=== PATIENT | female | born 1985 | race African-American/Black ===

== ENCOUNTER 2016-05-23 21:08 | Emergency (ER) | payer MEDICAID, OTHER ==
[~2016-05-23] VITALS: Ht 160 cm; Wt 71.7 kg
[~2016-05-23 21:08] MED LIST: ACETAMINOPHEN-1 EAC1 ORAL; CYCLOBENZAPRINE10 MG ORAL; IBUPROFEN600 MG ORAL; NAPROSYN500 M1 ORAL; NKM; NORCO 5-325 TA1 EACH ORAL
[2016-05-23] MEDS ORDERED: IBUPROFEN600 MG ORAL (22:15)
[2016-05-23 22:21] VITALS: BP 121/73
[2016-05-23 22:22] VITALS: BP 121/73
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
--- NOTE | 2016-05-24 10:42 | Diagnostic Imaging Report ---
Indication: Pain Comparison: None Findings: 3 views of the right foot were obtained. No acute fractures, malalignment, erosions or periostitis are identified. Bone mineralization is within normal limits. Soft tissues are unremarkable. Impression: Negative examination of the right foot.
== END 2016-05-23 22:22 | disposition home or self-care (01) ==
LOC: EMR 21:45
DX: S90.121A Contusion of right lesser toe(s) without damage to nail, initial encounter (principal); W50.0XXA Accidental hit or strike by another person, initial encounter; Y93.9 Activity, unspecified; Y92.9 Unspecified place or not applicable
CPT/HCPCS: 73630; 99283; L3215

== ENCOUNTER 2016-12-17 15:46 | Emergency (ER) | payer MEDICAID, OTHER ==
[~2016-12-17] VITALS: Ht 160 cm; Wt 72.6 kg
[2016-12-17 15:51] VITALS: BP 94/63
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
[2016-12-17 16:17] LABS: APPEARANCE,URINE SLIGHTLY CLOUDY; KETONES,URINE NEGATIVE (NEGATIVE); LEUKOCYTE ESTERASE ,URINE 3+ (NEGATIVE); NITRITE,URINE NEGATIVE (NEGATIVE); PH,URINE 8 (4.5-8.0); PROTEIN,URINE 1+ (NEGATIVE); UROBILINOGEN,URINE 4 MG/DL (0.0-1.0)
[2016-12-17 16:28] LABS: BACTERIA,URINE FEW /HPF; SQUAMOUS EPITHELIAL CELL,UR MODERATE /LPF (NONE/OCC); WBC,URINE 0-2 /HPF (0 - 2)
[2016-12-17] MEDS ORDERED: Fluconazole 100mg tab ORAL ONE (16:45)
[2016-12-17 16:46] VITALS: BP 102/64
== END 2016-12-17 16:49 | disposition home or self-care (01) ==
LOC: EMR 16:49
DX: N89.8 Other specified noninflammatory disorders of vagina (principal); R10.30 Lower abdominal pain, unspecified
CPT/HCPCS: 81003; 81025; 99283

== ENCOUNTER 2017-07-12 11:15 | Emergency (ER) | payer MEDICAID ==
[~2017-07-12] VITALS: Ht 162.6 cm; Wt 72.6 kg
[2017-07-12] MEDS ORDERED: NKM (11:21)
[2017-07-12 11:52] VITALS: BP 116/78
[2017-07-12 12:19] LABS: ANION GAP 6 mmol/L (5-15); BLOOD UREA NITROGEN 7 mg/dL (7-18); CALCIUM 9.2 MG/DL (8.5-10.1); CARBON DIOXIDE 30 MMOL/L (21-32); CHLORIDE 105 MMOL/L (98-107); CREATININE 0.6 MG/DL (0.55-1.30); POTASSIUM 3.8 MMOL/L (3.5-5.1); SODIUM 141 MMOL/L (136-145)
[2017-07-12 12:22] LABS: BASOPHILS % (AUTO) 1.7 % (0.0-2.0); EOSINOPHILS % (AUTO) 4.7 % (0.0-3.0); HEMATOCRIT 41.5 % (37.0-47.0); HEMOGLOBIN 13.9 G/DL (12.0-16.0); MEAN CORPUSCULAR VOLUME 93 FL (80-99); MONOCYTES % (AUTO) 9.7 % (1.0-10.0); NEUTROPHILS % (AUTO) 53.9 % (45.0-75.0); PLATELET COUNT 295 K/UL (150-450); RED BLOOD COUNT 4.46 M/UL (4.20-5.40); RED CELL DISTRIBUTION WIDTH 11.8 % (11.6-14.8); WHITE BLOOD COUNT 5.3 K/UL (4.8-10.8)
[2017-07-12 12:31] LABS: ALANINE AMINOTRANSFERASE 24 U/L (12-78); ALBUMIN/GLOBULIN RATIO 0.9 (1.0-2.7); ALKALINE PHOSPHATASE 102 U/L (46-116); ASPARTATE AMINO TRANSFERASE 25 U/L (15-37); BILIRUBIN,TOTAL 0.3 MG/DL (0.2-1.0); CREATINE KINASE 164 U/L (26-308)
[2017-07-12 12:36] LABS: INR 1.1 (0.9-1.1)
[2017-07-12 13:26] VITALS: BP_SYST 105; BP_SYST 112; BP_DIAS 68; BP_DIAS 75
[2017-07-12 13:28] VITALS: BP_SYST 105; BP_SYST 112; BP_DIAS 68; BP_DIAS 75
--- NOTE | 2017-07-12 14:09 | Diagnostic Imaging Report ---
Indication: Cough Technique: One view of the chest Comparison: none Findings: Lungs and pleural spaces are clear. Heart size is normal Impression: No acute process
[2017-07-12 14:55] VITALS: BP 111/67
--- NOTE | 2017-07-12 14:59 | Emergency Room Report ---
History of Present Illness General Chief Complaint: Dizziness Source: Patient Present Illness HPI Patient has felt weak and dizzy since this morning. She has been nauseated and vomited once. She has loose stools, reported to RN as diarrhea. No melena or blood in stool. She almost passed out. She had tingling in her R hand after the episode of vomiting. Heart rate was pounding at that time but improved. Denies chest pain. She denies fever, chills. She doesn't believe she is . No URI symptoms. No travel or unusual contacts. She denies pain. No headache. No rashes. Denies major medical problems. Allergies: Coded Allergies: No Known Allergies (Unverified , 12/08/13) Patient History Past Medical History: see triage record Social History: Denies: smoking Social History Narrative cares for her kids - here with friend Last Menstrual Period: 06/24/17 Now: No Reviewed Nursing Documentation: PMH: Agreed; PSxH: Agreed Nursing Documentation-PMH Past Medical History: No Stated History Review of Systems All Other Systems: negative except mentioned in HPI Physical Exam Vital Signs Date Time Temp Pulse Resp B/P (MAP) Pulse Ox O2 Delivery O2 Flow Rate FiO2 07/12/17 11:13 98.3 88 16 116/78 98 Room Air 98.2 Sp02 EP Interpretation: reviewed, normal General Appearance: well appearing, no apparent distress, GCS 15 Head: normocephalic Eyes: bilateral eye normal inspection, bilateral eye PERRL, bilateral eye conjunctivae pale ENT: moist mucus membranes Neck: supple Respiratory: lungs clear, normal breath sounds Cardiovascular #1: regular rate, rhythm Cardiovascular #2: 2+ radial (R) Gastrointestinal: normal inspection, normal bowel sounds, non tender, no mass, non-distended Musculoskeletal: back normal, gait/station normal, normal range of motion Neurologic: alert, oriented x3, motor strength/tone normal, sensory intact, cerebellar normal, speech normal Psychiatric: mood/affect normal Skin: normal inspection, warm/dry Medical Decision Making Diagnostic Impression: Primary Impression: Weakness Additional Impressions: Dehydration Near syncope Vomiting and diarrhea ER Course Patient presents with near syncope with vomiting and diarrhea. DDx: vasovagal, dehydration, anemia, electrolyte abnormalities, GItis, food poisoning, amongst others. Evaluation with EKG, labs and orthostatic VS. Treatment with IV hydration. Nausea and vomiting resolved at this time. EKG normal. Orthostatics reported negative. CBC unremarkable. CMP normal and normal troponin. Preg negative. Patient improved with IV hydration. Discussed possible etiologies. Patient stable for outpatient observation and treatment. Laboratory Tests Test 07/12/17 11:45 White Blood Count 5.3 K/UL (4.8-10.8) Red Blood Count 4.46 M/UL (4.20-5.40) Hemoglobin 13.9 G/DL (12.0-16.0) Hematocrit 41.5 % (37.0-47.0) Mean Corpuscular Volume 93 FL (80-99) Mean Corpuscular Hemoglobin 31.2 PG (27.0-31.0) H Mean Corpuscular Hemoglobin Concent 33.5 G/DL (32.0-36.0) Red Cell Distribution Width 11.8 % (11.6-14.8) Platelet Count 295 K/UL (150-450) Mean Platelet Volume 8.0 FL (6.5-10.1) Neutrophils (%) (Auto) 53.9 % (45.0-75.0) Lymphocytes (%) (Auto) 30.0 % (20.0-45.0) Monocytes (%) (Auto) 9.7 % (1.0-10.0) Eosinophils (%) (Auto) 4.7 % (0.0-3.0) H Basophils (%) (Auto) 1.7 % (0.0-2.0) Prothrombin Time 11.4 SEC (9.30-11.50) Prothrombin Time INR 1.1 (0.9-1.1) PTT 27 SEC (23-33) Urine HCG, Qualitative Negative (NEGATIVE) Sodium Level 141 MMOL/L (136-145) Potassium Level 3.8 MMOL/L (3.5-5.1) Chloride Level 105 MMOL/L (98-107) Carbon Dioxide Level 30 MMOL/L (21-32) Anion Gap 6 mmol/L (5-15) Blood Urea Nitrogen 7 mg/dL (7-18) Creatinine 0.6 MG/DL (0.55-1.30) Estimate Glomerular Filtration Rate > 60 mL/min (>60) Glucose Level 72 MG/DL (74-106) L Calcium Level 9.2 MG/DL (8.5-10.1) Total Bilirubin 0.3 MG/DL (0.2-1.0) Aspartate Amino Transferase (AST) 25 U/L (15-37) Alanine Aminotransferase (ALT) 24 U/L (12-78) Alkaline Phosphatase 102 U/L (46-116) Total Creatine Kinase 164 U/L (26-308) Troponin I 0.000 ng/mL (0.000-0.056) Pro-B-Type Natriuretic Peptide 12 pg/mL (0-125) Total Protein 8.4 G/DL (6.4-8.2) H Albumin 4.0 G/DL (3.4-5.0) Globulin 4.4 g/dL Albumin/Globulin Ratio 0.9 (1.0-2.7) L EKG Diagnostic Results Rate: normal Rhythm: NSR ST Segments: no acute changes Rhythm Strip Diag. Results EP Interpretation: yes Rhythm: NSR, no PVC's, no ectopy Last Vital Signs Date Time Temp Pulse Resp B/P (MAP) Pulse Ox O2 Delivery O2 Flow Rate FiO2 07/12/17 15:08 98.2 76 21 111/67 100 Room Air 98.2 Status: improved Disposition: HOME, SELF-CARE Condition: Improved Referrals: [facility],REFERRING (PCP) Meir Rajan M.D. Jul 12, 2017 14:59
[2017-07-12 15:08] VITALS: BP 111/67
== END 2017-07-12 15:08 | disposition home or self-care (01) ==
LOC: EDBD 11:15 → EMR 12:06
DX: R53.1 Weakness (principal); E86.0 Dehydration; R55 Syncope and collapse; R19.7 Diarrhea, unspecified; R11.2 Nausea with vomiting, unspecified; R42 Dizziness and giddiness
CPT/HCPCS: 36415; 71045; 80053; 81025; 82550; 83880; 84484; 85025; 85610; 85730; 86850; 86900; 86901; 93005; 96374; 96375; 99284